=== PATIENT | male | born 1965 | race Two or more races ===

== ENCOUNTER 2016-09-30 05:52 | Day surgery (SDC) | payer BC, SELFPAY ==
[2016-09-30] VITALS (9 sets, daily range): BP systolic 110–135; BP diastolic 69–86
[~2016-09-30] VITALS: Ht 177.8 cm; Wt 76.2 kg
[~2016-09-30 05:52] MED LIST: Ciprofloxacin Opth Soln ONE; Cyclopentolate 1% Opth Sol ONE; Diclofenac Sod 0.1% Op Soln ONE; NKM; Phenylephrine 2.5% Op Soln ONE; Tetracaine 0.5% Opth Soln ONE
[2016-09-30] MEDS ORDERED: Lidocaine 1% MPF 10mg/ml 5ml ONE ×2 (05:53→07:13)
[2016-09-30] MEDS ORDERED: Propofol 10mg/ml 20ml IV ONE ×2 (05:53)
[2016-09-30] MEDS ORDERED: Lidocaine 1% Plain 30 ml INJ ONE (05:53)
[2016-09-30] MEDS ORDERED: LR 1000ml ONE ×2 (05:53)
[2016-09-30] MEDS ORDERED: NS Irrig 1000ml ONE ×2 (05:53)
[2016-09-30] MEDS ORDERED: Sterile Water Irrig 1000ml IRRIG ONE ×2 (05:53)
[2016-09-30] MEDS ORDERED: Midazolam 2mg/2ml Inj ONE ×2 (05:53)
[2016-09-30] MEDS: Cyclopentolate 1% Opth Sol RIGHT EYE SCH ×4 (06:19→06:42)
[2016-09-30] MEDS: Ciprofloxacin Opth Soln RIGHT EYE SCH ×4 (06:19→06:42)
[2016-09-30] MEDS: Phenylephrine 2.5% Op Soln RIGHT EYE SCH ×4 (06:19→06:42)
[2016-09-30] MEDS: Diclofenac Sod 0.1% Op Soln RIGHT EYE SCH ×4 (06:19→06:42)
[2016-09-30] MEDS: Tetracaine 0.5% Opth Soln RIGHT EYE SCH ×4 (06:20→06:42)
--- NOTE | 2016-09-30 07:03 | Pre-Procedure Note/Attestation ---
Pre-Procedure Note/Attestation Complete Prior to Procedure Planned Procedure: right Procedure Narrative: Cataract with Intraocular lens, right eye Indications for Procedure Pre-Operative Diagnosis: Cataract, right eye Attestation I attest that I discussed the nature of the procedure; its benefits; risks and complications; and alternatives (and the risks and benefits of such alternatives ), prior to the procedure, with the patient (or the patient's legal billing representative). I attest that, if there was a reasonable possibility of needing a blood transfusion, the patient (or the patient's legal billing representative) was given the [facility] standardized written summary, pursuant to the [place] Blood Safety Act ([place] Health and Safety Code # 1645, as amended). I attest that I re-evaluated the patient just prior to the surgery and that there has been no change in the patient's H&P, except as documented below: SHARLENE CARDENAS Sep 30, 2016 07:03
[2016-09-30] MEDS ORDERED: Pred Forte 1% Opth Susp 1ml ONE (07:13)
[2016-09-30] MEDS ORDERED: BSS 500ml btl ONE (07:13)
[2016-09-30] MEDS ORDERED: Carbachol 0.01% Op Soln 1.5ml vial ONE (07:14)
[2016-09-30] MEDS ORDERED: Dexamethasone 4mg/ml vial ONE (07:14)
[2016-09-30] MEDS ORDERED: Lidocaine 4% Amp ONE (07:14)
[2016-09-30] MEDS ORDERED: BSS 15ml BTL ONE (07:15)
[2016-09-30] MEDS ORDERED: EPINEPHrine 1mg/1ml Amp ONE (07:15)
[2016-09-30] MEDS ORDERED: Sodium Hyaluronate 10 mg/ml 0.85ml ONE (07:15)
[2016-09-30] MEDS ORDERED: Sodium Hyaluronate 14 mg/ml 0.85ml ONE (07:15)
[2016-09-30] MEDS ORDERED: Povidone-Iodine 5% opth solution ONE (07:16)
[2016-09-30] MEDS ORDERED: LR 1000ml 1,000 ML IVLG SCH (07:48)
--- NOTE | 2016-09-30 07:48 | Anethesia Preoperative Eval ---
Anesthesia Pre-op PMH/ROS General Date of Evaluation: Sep 30, 2016 Time of Evaluation: 06:26 Anesthesiologist: Jessie ASA Score: ASA 1 Mallampati Score Class I : Soft palate, uvula, fauces, pillars visible Class II: Soft palate, uvula, fauces visible Class III: Soft palate, base of uvula visible Class IV: Only hard plate visible Mallampati Classification: Class I Surgeon: Kenisha Diagnosis: Cat OD Surgical Procedure: Cat Ext IOL OD Anesthesia History: other - N/V Family History: no anesthesia problems Allergies: Coded Allergies: No Known Allergies (Unverified , 09/26/16) Medications: see eMAR Past Medical History HEENT: Reports: cataract (L), cataract (R) PSxH Narrative: Cat Ext IOL OS Anesthesia Pre-op Phys. Exam Physician Exam Last Vital Signs Date Time Temp Pulse Resp B/P Pulse Ox O2 Delivery O2 Flow Rate FiO2 09/30/16 06:30 97.1 56 18 110/69 96 Room Air Constitutional: NAD Neurologic: CN 2-12 intact Cardiovascular: RRR Respiratory: CTA Gastrointestinal: S/NT/ND Airway Exam Mallampati Score: Class I MO: full ROM: full Teeth: intact Anesthesia Pre-op A/P Risk Assessment & Plan Assessment: ASA 1 Plan: GA Status Change Before Surgery: Jonn Cain MD Sep 30, 2016 07:48
--- NOTE | 2016-09-30 07:49 | Immediate Post-Op Evaluation ---
Immediate Post-Op Evalulation Immediate Post-Op Evalulation Procedure: Cat Ext IOL OS Date of Evaluation: Sep 30, 2016 Time of Evaluation: 08:49 IV Fluids: 700 LR Blood Products: 0 Estimated Blood Loss: 1 Urinary Output: 0 Blood Pressure Systolic: 135 Blood Pressure Diastolic: 86 Pulse Rate: 56 Respiratory Rate: 16 O2 Sat by Pulse Oximetry: 100 Temperature (Fahrenheit): 97.2 Pain Score (1-10): 1 Nausea: No Vomiting: No Complications 0 Patient Status: awake, reacts, patent, none Hydration Status: adequate Jonn Roman MD Sep 30, 2016 07:49
--- NOTE | 2016-09-30 07:50 | 48 Hour Post Anesthesia Eval ---
Post Anesthesia Evaluation Procedure: Cat Ext IOL OS Date of Evaluation: Sep 30, 2016 Time of Evaluation: 11:06 Blood Pressure Systolic: 132 0: 84 Pulse Rate: 57 Respiratory Rate: 18 Temperature (Fahrenheit): 98.2 O2 Sat by Pulse Oximetry: 100 Airway: patent Nausea: No Vomiting: No Pain Intensity: 1 Hydration Status: adequate Cardiopulmonary Status: Stable Mental Status/LOC: patient returned to baseline Follow-up Care/Observations: 0 Post-Anesthesia Complications: 0 Follow-up care needed: ready to discharge Jonn Roman MD Sep 30, 2016 07:50
[2016-09-30] MEDS ORDERED: Ketorolac 30mg Inj IV PRN (08:00)
[2016-09-30] MEDS ORDERED: Hydromorphone 0.5mg/0.5ml inj IVP PRN (08:00)
[2016-09-30] MEDS ORDERED: DiphenhydrAMINE 50mg/ml Inj IVP PRN (08:00)
[2016-09-30] MEDS ORDERED: Oxycodone/Acetaminophen 5-325 ORAL PRN (08:00)
[2016-09-30] MEDS ORDERED: Meperidine 25mg/0.5ml Inj IV PRN (08:00)
[2016-09-30] MEDS ORDERED: Norco 5mg/325mg tab ORAL PRN ×2 (08:00→08:45)
[2016-09-30] MEDS ORDERED: Atropine Inj 1mg/10ml Syr IV PRN (08:00)
[2016-09-30] MEDS ORDERED: Metoclopramide 10mg/2ml Inj IVP PRN (08:00)
[2016-09-30] MEDS ORDERED: Ketorolac 60mg Inj IV PRN (08:00)
[2016-09-30] MEDS ORDERED: LORazepam Inj 2mg/ml 1ml IV PRN (08:00)
[2016-09-30] MEDS ORDERED: Midazolam 2mg/2ml Inj IVP PRN (08:00)
[2016-09-30] MEDS ORDERED: fentaNYL 100 mcg/2 mL IV PRN (08:00)
[2016-09-30] MEDS ORDERED: Norco 7.5mg/325mg tab ORAL PRN (08:00)
[2016-09-30] MEDS ORDERED: Lidocaine 2% 20mg/ml/Epi 0.005mg/ml 20ml vial ONE (08:01)
[2016-09-30] MEDS ORDERED: Tobradex Opth Oint 3.5gm ONE (08:31)
--- NOTE | 2016-09-30 08:40 | Operative Note - PDOC ---
Operative Note Operative Note Date of Operation/Procedure: Sep 30, 2016 Chief Complaint: Poor vision, right eye Pre-op Diagnosis: Cataract, right eye Procedure: Cataract extraction with intraocular lens, right eye Post-op Diagnosis: Cataract, right eye Post-op Diagnosis: same as pre-op Surgeon: Kenisha Programmer Analyst: None Additional Surgeons: None Anesthesiologist: Jessie Anesthesia: MAC Specimen: none Complications: none Condition: stable Estimated Blood Loss: none Drains: none Implant(s) used?: Yes Indications for Procedure Poor vision, right eye Description of Procedure Dictated SHARLENE CARDENAS Sep 30, 2016 08:40
--- NOTE | 2016-09-30 20:30 | Operative Note - Dictated ---
DATE OF OPERATION: 09/30/2016 SURGEON: Michael De M.D. RHIC SYSTEMS SAFETY ENGINEER: None. ANESTHESIA: MAC by Dr. Roman. PREOPERATIVE DIAGNOSES: 1. 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 2. Epiretinal membrane, left eye. 3. Status post retinal detachment, left eye. POSTOPERATIVE DIAGNOSES: 1. 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 2. Epiretinal membrane, left eye. 3. Status post retinal detachment, left eye. PRINCIPAL PROCEDURE: Phacoemulsification with primary implantation of Toric intraocular lens, right eye. PROCEDURE: The patient has been evaluated in my office complaining of gradual decrease in vision. He previously underwent a pars plana vitrectomy and scleral buckling in his left eye due to retinal detachment and then went through placement of a posterior chamber intraocular lens for cataract. The right eye has been increase in cataract and decreasing vision. After discussing the risks, benefits, and alternatives, informed consent was obtained to proceed with the cataract extraction in the right eye combined with attempt to minimization of postoperative congenital corneal astigmatism. The patient was therefore brought to the [facility] where the right pupil was dilated and an intravenous line was started. In the preoperative holding area, the corneal position and limbus were marked. The patient was then brought into the operating room where ocular anesthesia was obtained with topical drops supplemented with intravenous sedation. The right eye was then prepped and draped in the usual fashion for intraocular surgery. Under the operating microscope, the patient was unable to cooperate with surgery and found all procedure quite uncomfortable. He was therefore given a Subtenon's Injection of 2% Xylocaine with epinephrine with a blunt cannula into the subtenon space. This produced excellent globe akinesia and anesthesia. The axis of placement of the Toric intraocular lens was then marked on the cornea at 76 degrees. Cornea was then filled with viscoelastic. A clear corneal temporal incision was made in the anterior chamber filled with lidocaine and viscoelastic. A continuous tear capsulotomy was accomplished. Hydrodissection was utilized to facilitate phacoemulsification. A two-handed phacoemulsification technique was used to fracture the lens nucleus into quadrants and the segments removed in sequence. Irrigation/aspiration hand piece was then used to remove all residual lens cortex and mal[place] the posterior capsule. Viscoelastic was introduced. An intraocular lens from [employer], model SN68T4 with a power of 19 diopters was folded into the lens insertion cartridge, injected into the posterior chamber of the eye, and positioned within the capsular bag. The astigmatic markings on the intraocular lens were then aligned with the preoperative markings on the cornea at 76 degrees. The viscoelastic was removed. The wound was adjusted, made watertight with a single 10-0 nylon suture. The viscoelastic was removed. The intraocular pressure was adjusted to normal. One drop of 10% prednisolone acetate and one drop of Ciloxan was placed on the eye. The eye was covered in an eye shield. This completed the procedure. All sponge and needle counts were correct. The patient was taken to the [facility] in good condition having tolerated the procedure well. Michael De M.D. DR: SHAWNEE JOB#: [id number] CC: Haley Clark M.D.
== END 2016-09-30 09:55 | disposition home or self-care (01) ==
LOC: SUR 05:52
DX: H25.811 Combined forms of age-related cataract, right eye (principal); H35.371 Puckering of macula, right eye; E55.9 Vitamin D deficiency, unspecified; Z96.1 Presence of intraocular lens
CPT/HCPCS: 66984; J0171; J1100; J2001; J2250; J2405; J2704; J3370; J7120; V2632; 94003; 94150